=== PATIENT | male | born 1990 | race Hispanic/Latino ===

== ENCOUNTER 2018-05-16 04:35 | Emergency (ER) | payer OTHER ==
[2018-05-16 04:39] VITALS: BMI 24.7
[2018-05-16 04:42] VITALS: BP 142/94; PULSE 80; RESP 18; TEMP 97.6; O2SAT 98
--- NOTE | 2018-05-16 05:21 | ED PDOC ---
HPI: Psych/Substance Abuse Time Seen by Provider: 05/16/18 04:42 Chief Complaint (Nursing): Alcohol Ingestion Chief Complaint (Provider): Alcohol Ingestion History Per: Patient History/Exam Limitations: no limitations Onset/Duration Of Symptoms: Mins Additional Complaint(s): 28 y/o male brought to the ED by [employer] for alcohol intoxication. Patient states he was walking around when he was picked up and brought to the ER. Patient admits to drinking alcohol. Denies injury and drug use. PMD: None Provided Past Medical History Reviewed: Historical Data, Nursing Documentation, Vital Signs Vital Signs: Last Vital Signs Temp 97.6 F 05/16/18 04:41 Pulse 80 05/16/18 04:41 Resp 18 05/16/18 04:41 BP 142/94 H 05/16/18 04:41 Pulse Ox 98 05/16/18 04:41 - Medical History PMH: No Chronic Diseases - Surgical History Surgical History: No Surg Hx - Family History Family History: States: Unknown Family Hx - Social History Alcohol: Social - Allergies Allergies/Adverse Reactions: Allergies Allergy/AdvReac Type Severity Reaction Status Date / Time No Known Allergies Allergy Verified 05/16/18 04:42 Review of Systems ROS Statement: Except As Marked, All Systems Reviewed And Found Negative Psych: Positive for: Other (EtOH intoxication) Physical Exam - Reviewed Nursing Documentation Reviewed: Yes Vital Signs Reviewed: Yes - Physical Exam Appears: Positive for: Well, Non-toxic, No Acute Distress Head Exam: Positive for: ATRAUMATIC, NORMOCEPHALIC Skin: Positive for: Normal Color, Warm, Dry Eye Exam: Positive for: EOMI, Normal appearance, PERRL ENT: Positive for: Normal ENT Inspection Neck: Positive for: Normal, Painless ROM Cardiovascular/Chest: Positive for: Regular Rate, Rhythm. Negative for: Murmur Respiratory: Positive for: Normal Breath Sounds. Negative for: Respiratory Distress Gastrointestinal/Abdominal: Positive for: Normal Exam, Soft. Negative for: Tenderness Back: Positive for: Normal Inspection Extremity: Positive for: Normal ROM. Negative for: Pedal Edema, Deformity Neurologic/Psych: Positive for: Alert, Oriented, Gait (steady). Negative for: Motor/Sensory Deficits - ECG O2 Sat by Pulse Oximetry: 98 (RA) Pulse Ox Interpretation: Normal Medical Decision Making Medical Decision Making: Time: 0450 A/P: 28 y/o male coming for alcohol intoxication. -- Patient is alert and oriented x3 with a steady gait. -- Patient is stable for discharge home. Scribe Attestation: Documented by Thomas Egan acting as a scribe for Dr. Jamarcus Hansen MD. Provider Scribe Attestation: All medical record entries made by the Scribe were at my direction and personally dictated by me. I have reviewed the chart and agree that the record accurately reflects my personal performance of the history, physical exam, medical decision making, and the department course for this patient. I have also personally directed, reviewed, and agree with the discharge instructions and disposition. Disposition - Clinical Impression Clinical Impression: Alcohol abuse - Disposition Referrals: Therese Barreto [Outside] Disposition: Routine/Home Disposition Time: 04:50 Condition: STABLE Instructions: Alcohol Abuse and Alcoholism (DC) Forms: [facility] (Bengali)
== END 2018-05-16 06:02 | disposition home or self-care (01) ==
LOC: H.ER 04:35
DX: F10.129 Alcohol abuse with intoxication, unspecified (principal)